=== PATIENT | male | born 1990 | race Caucasian/White ===

== ENCOUNTER 2023-03-17 04:39 | Emergency (ER) | payer MEDICAID ==
[~2023-03-17] VITALS: Ht 167.6 cm; Wt 82.0 kg
[2023-03-17 04:42] VITALS: O2SAT 98
[2023-03-17 05:21] VITALS: BP 114/78; PULSE 94; RESP 20; TEMP 98.4
[2023-03-17 05:48] LABS: CHLORIDE 105 mEq/L (98-107); INDEX HEMOLYSI 1 (1-3); INDEX ICTERIC 1 (1-4); INDEX LIPEMIC 1 (1-3); POTASSIUM 3.9 mEq/L (3.5-5.1); SODIUM 138 mEq/L (136-145)
[2023-03-17 05:55] LABS: ALANINE AMINOTRANSFERASE 52 IU/L (13-61); ALBUMIN 3.7 g/dL (3.4-5.0); ASPARTATE AMINOTRANSFERASE 21 IU/L (15-37); BILIRUBIN TOTAL 0.4 mg/dL (0.1-1.0); CALCIUM 8.7 mg/dL (8.5-10.1); CARBON DIOXIDE 30 mEq/L (21-32); CREATININE 0.7 mg/dL (0.6-1.3); ETHANOL BLOOD < 10 mg/dL (<10); GLUCOSE 110 mg/dL (70-105); PROTEIN TOTAL 7.5 g/dL (6.0-8.3); UREA NITROGEN BLOOD 10 mg/dL (7-21)
[2023-03-17 06:10] LABS: BASOPHILS % 0.3 % (0.0-2.0); HEMATOCRIT. 42.5 % (42.0-52.0); HEMOGLOBIN. 14.6 g/dL (14.0-18.0); LYMPHOCYTES % 36.1 % (20.0-50.0); MEAN CORPUSCULAR HEMOGLOBIN 30.3 pg (28.0-32.0); MEAN CORPUSCULAR HGB CONC 34.2 g/dL (31.0-37.0); MEAN CORPUSCULAR VOLUME 88.6 fL (80.0-94.0); MEAN PLATELET VOLUME 10.2 fl (7.4-10.4); MONOCYTES % 8.4 % (2.0-8.0); NEUTROPHILS % 54.2 % (40.0-76.0); PLATELET 289 x1000/uL (130-400); RED CELL DISTRIBUTION WIDTH 12.9 % (11.6-14.6); WHITE BLOOD COUNT 7.9 x1000/uL (4.5-11.0)
[2023-03-17 06:47] LABS: AMMONIA 10 uMol/L (<32)
[2023-03-17] MEDS ORDERED: KEPP500 MT (07:39)
[2023-03-17 08:32] LABS: CLARITY URINE CLEAR (CLEAR); COLOR URINE YELLOW (YELLOW); GLUCOSE URINE NEGATIVE (NEGATIVE); KETONES URINE NEGATIVE (NEGATIVE); LEUKOCYTE ESTERASE URINE NEGATIVE (NEGATIVE); NITRITE URINE NEGATIVE (NEGATIVE); OCCULT BLOOD URINE NEGATIVE (NEGATIVE); PH URINE 6.5 (4.5-8.0); PROTEIN URINE NEGATIVE (NEGATIVE); SPECIFIC GRAVITY URINE 1.017 (1.005-1.030); UROBILINOGEN URINE 0.2 E.U./dL (0.2-1.0)
[2023-03-17 08:59] LABS: *AMPHETAMINES SCREEN URINE NEGATIVE (NEGATIVE); *BARBITURATES SCREEN URINE NEGATIVE (NEGATIVE); *BENZODIAZEPINES SCREEN URINE NEGATIVE (NEGATIVE); *COCAINE SCREEN URINE NEGATIVE (NEGATIVE); CANNABINOID URINE SCREEN NEGATIVE (NEGATIVE); ECSTASY MDMA SCREEN URINE NEGATIVE (NEGATIVE); OPIATES URINE SCREEN NEGATIVE (NEGATIVE); PHENCYCLIDINE URINE SCREEN NEGATIVE (NEGATIVE)
== END 2023-03-17 10:15 | disposition home or self-care (01) ==
LOC: ER 04:54
DX: G40.909 Epilepsy, unspecified, not intractable, without status epilepticus (principal); I49.9 Cardiac arrhythmia, unspecified
CPT/HCPCS: 36415; 73060; 73080; 80053; 80305; 80320; 81003; 82140; 85025; 93005; 99285; G0480

== ENCOUNTER 2023-06-14 13:39 | Emergency (ER) | payer OTHER, MEDICAID ==
[~2023-06-14] VITALS: Ht 160 cm; Wt 91.0 kg
[~2023-06-14 13:39] MED LIST: KEPP500 MT
[2023-06-14 14:09] VITALS: TEMP 98.1
[2023-06-14] MEDS: OXYCODONE HCL/ACETAMINOPHEN 5/325MG TABLET PO ONE (14:19)
[2023-06-14] MEDS: MORPHINE SULFATE 4 MG/ML CPJ (NOT FOR IM USE) IV ONE (14:30)
[2023-06-14 16:52] VITALS: O2SAT 96
[2023-06-14] MEDS: MORPHINE SULFATE 4 MG/ML CPJ (NOT FOR IM USE) IV SCH (16:56)
[2023-06-14] MEDS: KETAMINE HCL 50 MG/ML 10ML IV ONE (16:56)
[2023-06-14 19:22] VITALS: BP 112/63; PULSE 87; RESP 17
== END 2023-06-14 19:32 | disposition home or self-care (01) ==
LOC: ER 13:39
DX: S43.005A Unspecified dislocation of left shoulder joint, initial encounter (principal); X58.XXXA Exposure to other specified factors, initial encounter; Y93.89 Activity, other specified; Y92.89 Other specified places as the place of occurrence of the external cause; Y99.8 Other external cause status
CPT/HCPCS: 73030; 23650; 96374; 99152; 99285; J3490; J2270; Z7610

== ENCOUNTER 2023-08-06 08:38 | Emergency (ER) | payer MEDICAID ==
[~2023-08-06] VITALS: Ht 180.3 cm; Wt 113.0 kg
[2023-08-06] MEDS ORDERED: PROPOFOL 200MG/20ML VIAL IV PRN (09:00)
[2023-08-06] MEDS: FENTANYL CITRATE/PF 50MCG/ML 2ML VIAL IV ONE (10:05)
[2023-08-06] MEDS: ONDANSETRON HCL 4MG/2ML INJ IV ONE (10:05)
[2023-08-06 10:09] VITALS: TEMP 98.3; O2SAT 98
[2023-08-06 12:59] VITALS: BP 109/65; PULSE 79; RESP 16
== END 2023-08-06 13:22 | disposition home or self-care (01) ==
LOC: ER 08:38
DX: S43.005A Unspecified dislocation of left shoulder joint, initial encounter (principal); Z86.59 Personal history of other mental and behavioral disorders; X58.XXXA Exposure to other specified factors, initial encounter; Y93.01 Activity, walking, marching and hiking; Y92.89 Other specified places as the place of occurrence of the external cause; Y99.8 Other external cause status
CPT/HCPCS: 73030; 23650; 96374; 99152; 99285; J3010; J2405; J2704; Z7610 ×6